=== PATIENT | female | born 1960 | race Caucasian/White ===

== ENCOUNTER → 2020-11-09 09:04 | Outpatient (BNVA) | payer MEDICARE, SELFPAY | PROVIDERS: Family Provider Internal Medicine; PCP Family Medicine; Visit Provider Family Medicine | DX: I10 Essential (primary) hypertension (principal); E78.5 Hyperlipidemia, unspecified; E11.9 Type 2 diabetes mellitus without complications; M25.511 Pain in right shoulder; M25.512 Pain in left shoulder | CPT/HCPCS: 80053; 80061; 82043; 83036; 85025; 85651; 86038; 86140; 86431 ==

== ENCOUNTER → 2020-12-14 13:15 | Outpatient (BNVA) | payer MEDICARE, SELFPAY | PROVIDERS: Family Provider Internal Medicine; PCP Family Medicine; Visit Provider Family Medicine | DX: E11.9 Type 2 diabetes mellitus without complications (principal); I10 Essential (primary) hypertension; M15.9 Polyosteoarthritis, unspecified; R06.2 Wheezing; E78.5 Hyperlipidemia, unspecified | CPT/HCPCS: 80048 ==

== ENCOUNTER → 2020-12-18 08:44 | Outpatient (BNVA) | payer MEDICARE, SELFPAY | PROVIDERS: Family Provider Internal Medicine; PCP Family Medicine; Visit Provider Family Medicine | DX: Z01.812 Encounter for preprocedural laboratory examination (principal); Z20.822 Contact with and (suspected) exposure to COVID-19 | CPT/HCPCS: 87635 ==

== ENCOUNTER → 2021-01-01 10:36 | Outpatient (BNVA) | payer MEDICARE, SELFPAY | PROVIDERS: PCP Family Medicine; Visit Provider Family Medicine | DX: Z01.812 Encounter for preprocedural laboratory examination (principal); Z20.822 Contact with and (suspected) exposure to COVID-19 | CPT/HCPCS: 87635 ==

== ENCOUNTER 2021-01-07 11:54 | Outpatient (CLI) | payer MEDICARE, SELFPAY ==
--- NOTE | 2021-01-07 12:21 | PFTS_ITS ---
Date of Study:01/07/21 Date of Dictation: 01/07/2021 MECHANICS: Postbronchodilator forced vital capacity (FVC) is reduced to 65%. Postbronchodilator forced expiratory volume in one second (FEV1) is 1.71 L and moderately reduced to 66% of predicted FEV1/FVC is Normal. There is no significant response to bronchodilators FLOW VOLUME LOOP: Normal . LUNG VOLUMES: Not measured DIFFUSING CAPACITY FOR CARBON MONOXIDE: Not measured . INTERPRETATION: The spirometry consistent with moderate restriction. Correlate clinically MTDD
== END 2021-01-07 11:55 | disposition home or self-care (01) ==
PROVIDERS: PCP Family Medicine; Visit Provider Family Medicine
DX: R06.2 Wheezing (principal); F17.210 Nicotine dependence, cigarettes, uncomplicated
CPT/HCPCS: 94060; J7611

== ENCOUNTER → 2021-01-13 08:53 | Outpatient (BNVA) | payer MEDICARE, SELFPAY | PROVIDERS: PCP Family Medicine; Visit Provider Internal Medicine Rheumatology | DX: M75.52 Bursitis of left shoulder (principal); M75.42 Impingement syndrome of left shoulder; Z87.891 Personal history of nicotine dependence | CPT/HCPCS: 20610; 99203; J1030 ==

== ENCOUNTER → 2021-03-08 11:53 | Outpatient (BNVA) | payer MEDICARE, SELFPAY | PROVIDERS: PCP Family Medicine; Visit Provider Family Medicine | DX: E11.9 Type 2 diabetes mellitus without complications (principal); I10 Essential (primary) hypertension | CPT/HCPCS: 80053; 83036 ==

== ENCOUNTER → 2021-07-05 10:17 | Outpatient (BNVA) | payer MEDICARE, SELFPAY | PROVIDERS: PCP Family Medicine; Visit Provider Family Medicine | DX: E11.9 Type 2 diabetes mellitus without complications (principal) | CPT/HCPCS: 80053; 83036 ==

== ENCOUNTER 2022-01-03 10:56 | Outpatient (CLI) | payer MEDICARE, SELFPAY ==
--- NOTE | 2022-01-03 11:15 | XR_ITS ---
WS: [id number] Exam: XR foot RT min 3V* [id number] Date/Time of Exam: 01/03/2022 11:20 AM Reason For Exam: acute foot pain No acute fracture or dislocation. Prosthesis noted at the first MP joint. Calcaneal spurs noted. No s oft tissue foreign bodies. XR/XR foot RT min 3V* [id number] IMPRESSION: 1. No fracture or dislocation. 2. Prosthesis noted at the first MP joint with associated degenerative change.
== END 2022-01-03 10:57 | disposition home or self-care (01) ==
LOC: RAD 11:00
PROVIDERS: PCP Family Medicine; Visit Provider Family Medicine
DX: M79.671 Pain in right foot (principal); E78.5 Hyperlipidemia, unspecified; E11.9 Type 2 diabetes mellitus without complications; I10 Essential (primary) hypertension
CPT/HCPCS: 73630; 80053; 80061; 83036; 85025

== ENCOUNTER 2022-03-30 09:46 | Outpatient (CLI) | payer MEDICARE, SELFPAY ==
--- NOTE | 2022-03-30 09:51 | MM_ITS ---
WS: [id number] Bilateral screening 3D tomosynthesis digital mammogram, 03/30/2022 Clinical Data: SCREENING Comparison: 11/21/2017, 05/11/2015, 05/20/2013. Findings: The breast parenchymal pattern shows fat replacement. No spiculated masses or clustered calcification s are seen. There are no secondary signs of carcinoma. There is a mole marker on the left breast. MM/[place] [id number] Impression: 1. Negative bilateral mammogram unchanged. 2. Recommend annual screening mammograms. BIRADS: 1-Negative FOLLOW UP: 1 Year Follow-up The CAD cash checker was used.
== END 2022-03-30 09:47 | disposition home or self-care (01) ==
LOC: RAD 09:46
PROVIDERS: PCP Family Medicine; Visit Provider Family Medicine
DX: Z12.31 Encounter for screening mammogram for malignant neoplasm of breast (principal)
CPT/HCPCS: 77063; 77067

== ENCOUNTER → 2022-04-25 13:47 | Outpatient (BNVA) | payer MEDICARE, SELFPAY | PROVIDERS: PCP Family Medicine; Visit Provider Specialist | DX: M65.341 Trigger finger, right ring finger (principal) | CPT/HCPCS: 73130; 99204 ==

== ENCOUNTER 2022-05-06 10:41 | Day surgery (SDC) | payer MEDICARE, SELFPAY ==
[2022-05-05 12:03] VITALS: BMI 39.9
[2022-05-06 11:11] VITALS: BP 148/93; PULSE 90; RESP 18; TEMP 37.3; O2SAT 95
--- NOTE | 2022-05-06 11:20 | ECG_ITS ---
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 Measurements Intervals [place]ner Rate: 90 P: 32 NJ: 193 QRS: 21 QRSD: 81 T: 44 QT: 365 QTc: 447 Interpretive Statements SINUS RHYTHM LOW QRS VOLTAGE IN PRECORDIAL LEADS [QRS DEFLECTION < 1.0 mV IN CHEST LEADS] Compared to ECG 06/09/2016 13:14:35 No significant changes Electronically Signed On 05-06-2022 16:30:28 CDT by Saavnna Adame M.D. [id number] f
--- NOTE | 2022-05-06 11:44 | ANES.PREANE2 ---
Pre-Anesthetic Assessment Height/Weight: Height 1.65 m Weight 108.862 kg Temp Pulse Resp BP Pulse Ox O2 Del Method 99.2 F 90 18 148/93 95 05/06/22 11:11 05/06/22 11:11 05/06/22 11:11 05/06/22 11:11 05/06/22 11:11 05/06/22 11:14 Preop Diagnosis: Right ring finger triggering Operation Date: 05/06/22 12:00 Proposed Procedures p RIGHT RING FINGER TRIGGER FINGER RELEASE. 65609,M65.30(Right) - Elizabeth Gupta MD Familial anesthetic complications: None Was Beta Hood taken within 24 hours: N/A Was Clonidine taken within 24 hours: N/A Last intake: > 8 hrs Social No alcohol and No tobacco Exam alert, oriented x 3, clear to auscultation bilaterally and regular rate & rhythm Airway Mallampati: Class III Dentition: false Pulmonary Asthma CV/HEM Hypertension Metabolic Diabetes Mellitus, Hyperlipidemia and Morbid Obesity Musc/skel Fibromyalgia and Osteoarthritis/DJD Anesthetic Plan ASA status: 3 Anesthesia: General Risk of > 500 ml blood loss (7ml/kg in children): No Medications/Allergies Home Medications Medication Instructions Recorded Confirmed Last Taken Type wmypvos-feunqxsmi-fxje 333 mg-133 tab PO 10/12/20 04/25/22 02/23/22 History mg-5 mg tablet cholecalciferol (vitamin D3) 50 50 mcg PO DAILY 10/12/20 05/06/22 05/05/22 20:00 History mcg (2,000 unit) capsule fluticasone propionate 50 2 spray intranasal DAILY 10/12/20 05/06/22 05/05/22 History mcg/actuation nasal spray,suspension (Flonase Allergy Relief) melatonin 5 mg capsule mg PO 10/12/20 04/25/22 05/04/22 20:00 History mcqvaaytwfkn-Pn-fptv-minerals tab PO 10/12/20 04/25/22 05/05/22 08:00 History (Multiple Vitamin, Womens) albuterol sulfate 90 mcg/actuation 2 puff inhalation Q6H PRN 01/03/22 05/06/22 05/04/22 Rx aerosol inhaler (ProAir HFA) shortness of breath or wheezing #8.5 grams duloxetine 60 mg capsule,delayed See Rx Instructions .Route 01/03/22 05/06/22 05/05/22 08:00 Rx release .COMPLEX #90 caps fluticasone 250 mcg-salmeterol 50 1 inh inhalation BID #60 ea 01/03/22 05/06/22 05/04/22 Rx mcg/dose blistr powdr for inhalation (Advair Diskus) losartan 50 mg tablet See Rx Instructions .Route 01/03/22 05/06/22 05/04/22 20:00 Rx .COMPLEX #90 tabs meloxicam 15 mg tablet (Mobic) 15 mg PO DAILY #90 tabs 01/03/22 05/06/22 05/05/22 08:00 Rx ropinirole 4 mg tablet 4 mg PO .AT BEDTIME #90 tabs 03/11/22 05/06/22 05/05/22 23:00 Rx amlodipine 10 mg tablet 10 mg PO DAILY #90 tabs 04/04/22 05/06/22 05/05/22 08:00 Rx rosuvastatin 20 mg tablet See Rx Instructions .Route 04/04/22 05/06/22 05/05/22 21:00 Rx .COMPLEX #90 tabs sertraline 100 mg tablet See Rx Instructions .Route 04/04/22 05/06/22 05/05/22 08:00 Rx .COMPLEX #90 tabs sitagliptin 100 mg tablet (Januvia) See Rx Instructions .Route 04/15/22 05/06/22 05/05/22 08:00 Rx .COMPLEX #90 tabs metformin 500 mg tablet See Rx Instructions .Route 04/19/22 05/06/22 05/05/22 08:00 Rx .COMPLEX #180 tabs Allergies Allergy/AdvReac Type Severity Reaction Status Date / Time codeine AdvReac Mild HIVES Verified 04/25/22 13:48 lisinopril AdvReac cough Verified 04/25/22 13:48 [facility] Anesthesia Medical History Anxiety and depression Asthma Essential hypertension Hyperlipidemia Osteoarthritis of multiple joints RLS (restless legs syndrome) Subacromial bursitis of left shoulder joint Subacromial impingement of left shoulder Type 2 diabetes mellitus, without long-term current use of insulin Surgical History H/O carpal tunnel repair Right - 2009 H/O knee surgery Left - scope History of surgical removal of ganglion cyst History of toe surgery Family History Other CAD (coronary artery disease) Diabetes Hypertension Rheumatoid arthritis Denies family history of Lupus Chronic kidney disease (CKD) Lung disease Cancer Stroke Social History Smoking and tobacco status: former smoker (12 years ago) Alcohol intake: former Former alcohol use details: 08/18 [employer] Marital status: History of recent travel: No Data Anesthesia Cardiac Studies: No Data to Display
[2022-05-06 11:45] LABS: Glucose Point of Care 121 mg/dL (70-110)
[2022-05-06] MEDS: acetaminophen 1,000 MG/100 ML PIGGYBACK 400 MG IV (12:02)
--- NOTE | 2022-05-06 12:08 | W.PM.OPSUD ---
Surgery/Procedure H&P Update DATE OF PROCEDURE: May 06, 2022 DATE H&P PERFORMED: 04/25/22 H&P UPDATE INFORMATION: I have reviewed H&P completed within last 30 days, I have examined patient prior to procedure, No changes to prior documentation and H&P is in [facility] EMR on date indicated PREOP DIAGNOSIS: Right ring finger triggering PLANNED PROCEDURE: Operation Date: 05/06/22 12:00 Proposed Procedures p RIGHT RING FINGER TRIGGER FINGER RELEASE. 28518,M65.30(Right) - Elizabeth Gupta MD Related Problem List Diagnoses (1) Trigger finger, right ring finger:
[2022-05-06] MEDS: CELEcoxib 200 mg Capsule 400 MG PO (12:11)
[2022-05-06 12:15] LABS: Anion Gap 16.3 (5-19); Blood Urea Nitrogen 10 mg/dL (8-23); Calcium 9.5 mg/dL (8.5-10.5); Carbon Dioxide 26 mmol/L (22-29); Chloride 100 mmol/L (98-107); Glucose 118 mg/dL (65-115); Osmolality Calculated 286 mOsm/kg (285-295); Potassium 4.3 mmol/L (3.5-5.1); Sodium 138 mmol/L (136-145)
[2022-05-06] MEDS: sodium chloride 0.9% 1,000 ML 30 ML IV (12:26)
[2022-05-06] MEDS: ceFAZolin 2,000 MG in sodium chloride 0.9% (plus) 50 ML 100 MG IV (13:02)
[2022-05-06 14:03] VITALS: BP 143/84; PULSE 86; RESP 21; TEMP 36.5; O2SAT 98
[2022-05-06 14:08] VITALS: BP 158/78; PULSE 81; RESP 18; O2SAT 98
[2022-05-06 14:12] LABS: Glucose Point of Care 108 mg/dL (70-110)
--- NOTE | 2022-05-06 14:13 | P.OP_ITS ---
Operative Report Date of procedure: May 06, 2022 Pre-op diagnosis: Right ring finger triggering Post-op diagnosis: Right ring finger triggering Procedure done: Release right ring trigger finger Specimens removed/disposition: None Surgeon: Elizabeth Gupta Speech Language Pathologist Prn: None Anesthesia: General (Per LMA, ASA 3) Estimated blood loss (mL): 1 Tourniquet time (min): 22 (At 250 mmHg) IV fluids (mL): 300 Urine output (mL): 0 (No Hein) Complications: None Condition: stable Disposition: PACU (Then to same-day surgery for discharge home) Brief History: Today, the patient presents for release of right trigger finger. Patient states her right ring finger has been locking up for around 2 months. She describes a stabbing, burning sensation located in her right hand and ring finger. She explains her ring finger locks up anytime she picks up objects or closes her fist. She explains she has difficulty holding her coffee cup, brushing her hair and fastening her bra. Procedure: Patient was brought to the operating theater. He was placed on the operating room table. General anesthesia was administered per LMA, ASA 3. The patient tolerated it well. Ancef 2 g was administered preoperatively.. A tourniquet was placed high on the arm. The arm was exsanguinated, and tourniquet time was 22 minutes at 250 mmHg. Surgical pause was performed prior to commencement of the surgical procedure. At the time of the surgical pause, we identified the site and side of surgery. We also identified the patient's identity and appropriate administration of IV antibiotics. Following the surgical pause, an incision was made along the distal palmar crease beneath the ring finger. Dissection continued through the skin to the subcutaneous tissues using a scalpel. Blunt dissection was then utilized to spread soft tissues and allow access to the A1 santosh. It was then incised longitudinally and sharply using a knife. This was accomplished without difficulty and atraumatically. Once the A1 santosh was released, tendons were brought up out of the wound and evaluated. Proximally, there was some fibrous tissue and this was released as well. There were no gross masses on the tendons. Tendons were returned to normal position. We then irrigated the wound and subsequently closed it with 3-0 nylon with an interrupted mattress type suture. Following closure of the wound, the wound was injected with 0.25% percent bupivacaine into the subcutaneous tissues as a local anesthetic. Sterile dressing was then placed consisting of Dermabond, OpSite, fluffed fluffs,sterile soft roll, and an Walter wrap. The patient was returned to recovery in satisfactory condition. He will be discharged home to follow-up in the office. There were no complications and no specimens. Related Problem List Diagnoses (1) Trigger finger, right ring finger:
[2022-05-06 14:25] VITALS: BP 111/78; PULSE 84; RESP 18; TEMP 37.1; O2SAT 95
[2022-05-06 14:53] VITALS: BP 136/82; PULSE 80; RESP 16; TEMP 37.1; O2SAT 96
--- NOTE | 2022-05-06 17:00 | ANE.PACU2 ---
Inpatient post-anesthesia follow up: Airway intact: Yes Vital signs: Temperature 98.8 F Pulse Rate 80 Respiratory Rate 16 Blood Pressure 136/82 Pulse Oximetry 96 Oxygen Delivery Me thod Room Air Oxygen Flow Rate 6 Fraction of Inspir ed Oxygen Hydration adequate: Yes Nausea and vomiting: No Pain level: 1 Mental status: Baseline
== END 2022-05-06 15:00 | disposition home or self-care (01) ==
PROVIDERS: Anesthesiology; PCP Family Medicine; Visit Provider Specialist
PROC: (CPT 26055; principal; 2022-05-06 11:50)
DX: M65.341 Trigger finger, right ring finger (principal); I10 Essential (primary) hypertension; J45.909 Unspecified asthma, uncomplicated; E11.9 Type 2 diabetes mellitus without complications; E78.5 Hyperlipidemia, unspecified; E66.01 Morbid (severe) obesity due to excess calories; Z68.39 Body mass index [BMI] 39.0-39.9, adult; M79.7 Fibromyalgia; Z79.84 Long term (current) use of oral hypoglycemic drugs; Z87.891 Personal history of nicotine dependence
CPT/HCPCS: 26055; 36415; 36416; 80048; 82962; 93005; J1100; J2405; J2704; J3010; J3490; J7030

== ENCOUNTER → 2022-05-20 10:00 | Outpatient (BNVA) | payer MEDICARE, SELFPAY | PROVIDERS: PCP Family Medicine; Visit Provider Nurse Practitioner Family | DX: Z98.890 Other specified postprocedural states (principal) | CPT/HCPCS: 99024 ==

== ENCOUNTER → 2022-07-04 10:49 | Outpatient (BNVA) | payer MEDICARE, SELFPAY | PROVIDERS: PCP Family Medicine; Visit Provider Family Medicine | DX: E11.9 Type 2 diabetes mellitus without complications (principal) | CPT/HCPCS: 80053; 82043; 83036 ==

== ENCOUNTER → 2022-07-29 14:06 | Outpatient (BNVA) | payer MEDICARE, SELFPAY | PROVIDERS: PCP Family Medicine; Visit Provider Family Medicine | DX: N95.0 Postmenopausal bleeding (principal) | CPT/HCPCS: 88175 ==

== ENCOUNTER → 2022-09-08 11:04 | Outpatient (BNVA) | payer MEDICARE, SELFPAY | PROVIDERS: PCP Family Medicine; Visit Provider Obstetrics & Gynecology | DX: N95.0 Postmenopausal bleeding (principal) | CPT/HCPCS: 88305; 88360 ==

== ENCOUNTER → 2023-01-02 08:21 | Outpatient (BNVA) | payer MEDICARE, SELFPAY | PROVIDERS: PCP Family Medicine; Visit Provider Family Medicine | DX: E11.9 Type 2 diabetes mellitus without complications (principal); E78.2 Mixed hyperlipidemia; Z13.6 Encounter for screening for cardiovascular disorders | CPT/HCPCS: 80053; 80061; 82043; 83036; 85025 ==